=== PATIENT | female | born 1950 | race Caucasian/White ===

== ENCOUNTER 2018-06-14 15:08 | Emergency (ER) | payer MEDICARE ==
--- NOTE | 2018-06-14 16:21 | RADIOLOGY REPORT (SQ) ---
EXAM DESCRIPTION: CHEST SINGLE VIEW COMPLETED DATE/TIME: 06/14/2018 4:11 pm REASON FOR STUDY: cp COMPARISON: 03/07/2013 EXAM PARAMETERS: NUMBER OF VIEWS: One view. TECHNIQUE: Single frontal radiographic view of the chest acquired. RADIATION DOSE: NA LIMITATIONS: None. FINDINGS: LUNGS AND PLEURA: No opacities, masses or pneumothorax. No pleural effusion. MEDIASTINUM AND HILAR STRUCTURES: No masses. Contour normal. HEART AND VASCULAR STRUCTURES: Heart normal in size. Normal vasculature. BONES: Tendon anchor within the left humeral head. HARDWARE: Surgical clips project over the superior mediastinum. OTHER: No other significant finding. IMPRESSION: NO ACUTE RADIOGRAPHIC FINDING IN THE CHEST. TECHNICAL DOCUMENTATION: JOB ID: [id number] [employer]- All Rights Reserved Reading location - IP/workstation name: [email or web address]
[2018-06-14] MEDS ORDERED: IPRATROPIUM/ALBUTEROL 0.5-2.5 MG/3 ML AMPUL NEB ONE (16:24)
[2018-06-14 16:26] LABS: ABSOLUTE BASOPHILS # (AUTO) 0.1 10^3/uL (0.0-0.2); ABSOLUTE EOSINOPHILS # (AUTO) 0.1 10^3/uL (0.0-0.6); ABSOLUTE LYMPHOCYTES (AUTO) 2.1 10^3/uL (0.5-4.7); ABSOLUTE MONOCYTES (AUTO) 0.8 10^3/uL (0.1-1.4); ABSOLUTE NEUT (AUTO) 8.4 10^3/uL (1.7-8.2); EOSINOPHILS % (AUTO) 1.3 % (0-6); HEMATOCRIT 38.9 % (36.0-47.0); HEMOGLOBIN 12.5 g/dL (12.0-15.5); LYMPHOCYTES % (AUTO) 18.1 % (13-45); MEAN CORPUSCULAR HEMOGLOBIN 25.9 pg (27.0-33.4); MEAN CORPUSCULAR HGB CONC 32.3 g/dL (32.0-36.0); MEAN CORPUSCULAR VOLUME 80 fl (80-97); MONOCYTES % (AUTO) 7.3 % (3-13); PLATELET COUNT 394 10^3/uL (150-450); RED BLOOD COUNT 4.84 10^6/uL (3.72-5.28); RED CELL DISTRIBUTION WIDTH 14.6 % (11.5-14.0); SEGMENTED NEUTROPHILS % (AUTO) 72.3 % (42-78); TOTAL CELLS COUNTED % (AUTO) 100 %; WHITE BLOOD COUNT 11.6 10^3/uL (4.0-10.5)
--- NOTE | 2018-06-14 16:29 | ER Document Report ---
ED General <SWAPNA HUNT - Last Filed: 06/14/18 18:56> - General Mode of Arrival: Ambulatory Information source: Patient <OLGA MG - Last Filed: 06/17/18 06:26> - General Chief Complaint: Blood Pressure Problem Stated Complaint: BLOOD PRESSURE ISSUE Time Seen by Provider: 06/14/18 16:19 Notes: This 67-year-old female patient comes in with severe shortness of breath, dyspnea on exertion, and blood pressure elevating today. She does take propranolol 160 mg a day for her blood pressure. She is on albuterol tablets prn for her wheezing. She is currently on indomethacin for gout in her ankles, and reasons reports that the swelling and pain in the ankles is almost gone since being on indomethacin for the past few days. She reports she has been having these episodes of shortness of breath for which she takes albuterol tablets off and on for the past several days, but today is considerably worse than the previous episodes. She is initially quite dyspneic, retracting, with very tight wheezes. (MARILEEISA SofiaSWAPNA) 67-year-old female presenting today with complaints of shortness of breath. Patient also mentions having high blood pressure that she thinks is related to her having shortness of breath because her pressures did not rise until her shortness of breath began. Patient states that her chest feels tight but she denies any pain. Patient states that her chest tightness also began after her shortness of breath started. (OLGA MG) - Related Data Allergies/Adverse Reactions: No Known Allergies Allergy (Verified 03/07/13 16:29) Past Medical History - General Information source: Patient - Social History Smoking Status: Former Smoker Cigarette use (# per day): No Frequency of alcohol use: None Drug Abuse: None Lives with: Family Family History: Reviewed & Not Pertinent - Past Medical History Cardiac Medical History: Reports: Hx Hypercholesterolemia, Hx Hypertension Endocrine Medical History: Reports: Hx Diabetes Mellitus Type 2 GI Medical History: Reports: Hx Hiatal Hernia Past Surgical History: Reports: Hx Thyroid Surgery <OLGA MG - Last Filed: 06/17/18 06:26> Review of Systems - Review of Systems Constitutional: No symptoms reported EENT: No symptoms reported Cardiovascular: No symptoms reported Respiratory: See HPI, Short of breath, Wheezing Gastrointestinal: No symptoms reported Genitourinary: No symptoms reported Female Genitourinary: No symptoms reported Musculoskeletal: No symptoms reported Skin: No symptoms reported Hematologic/Lymphatic: No symptoms reported Neurological/Psychological: No symptoms reported -: Yes All other systems reviewed and negative <OLGA MG - Last Filed: 06/17/18 06:26> Physical Exam <SWAPNA HUNT - Last Filed: 06/14/18 18:56> <OLGA MG - Last Filed: 06/17/18 06:26> - Vital signs Vitals: Resp BP Pulse Ox 29 H 166/136 H 96 06/14/18 15:13 06/14/18 15:13 06/14/18 15:13 - Notes Notes: Physical Exam: General: Alert, appears anxious. HEENT: Normocephalic. Atraumatic. PERRL. Extraocular movements intact. Oropharynx clear. Neck: Supple. Non-tender. Respiratory: Moderate respiratory distress. Retracting, high-pitched wheezing throughout, very little air movement. Cardiovascular: Regular rate and rhythm. Abdominal: Normal Inspection. Non-tender. No distension. Normal Bowel Sounds. Back: Non-tender. No deformity or step off. Extremities: Moves all four extremities. Upper extremities: Normal inspection. Normal ROM. Lower extremities: Normal inspection. No edema. Normal ROM. Neurological: Normal cognition. AAOx4. Normal speech. Psychological: Normal affect. Normal Mood. Skin: Warm. Dry. Normal color. (OLGA MG) Course - Laboratory Result Diagrams: 06/14/18 15:12 06/14/18 15:12 - Diagnostic Test Radiology reviewed: Reports reviewed - Chest x-ray does not show infiltrate - EKG Interpretation by Nv EKG shows normal: Sinus rhythm, [place], Intervals, QRS Complexes, ST-T Waves Rate: Normal - 71 Rhythm: NSR [place]/QRS: IVCD <SWAPNA HUNT - Last Filed: 06/14/18 18:56> - Laboratory Result Diagrams: 06/14/18 15:12 06/14/18 15:12 <OLGA MG - Last Filed: 06/17/18 06:26> - Re-evaluation Re-evalutation: 06/14/18 18:31 The patient is feeling much better after breathing treatments, wheezes are gone. Blood pressure has come down. She will be instructed to stop taking albuterol tablets and use the inhaler. She will be discharged on prednisone taper dose. She will be instructed to stop taking the indomethacin she is taking for gout in her ankles as the prednisone will be more than adequate for this. She will be encouraged follow-up with her primary care provider to discuss possibility of inhaled steroids or inhaled steroids and long-acting bronchodilators. (SWAPNA HUNT) - Vital Signs Vital signs: Temp Pulse Resp BP Pulse Ox 98 F 17 154/98 H 96 06/14/18 19:06 06/14/18 18:55 06/14/18 18:55 06/14/18 18:55 - Laboratory Laboratory results interpreted by me: 06/14/18 06/14/18 15:12 15:12 WBC 11.6 H MCH 25.9 L RDW 14.6 H Absolute Neutrophils 8.4 H Est GFR ( Amer) 52 L Est GFR (Non-Af Amer) 43 L Glucose 177 H Alkaline Phosphatase 133 H Discharge <SWAPNA HUNT - Last Filed: 06/14/18 18:56> <OLGA MG - Last Filed: 06/17/18 06:26> - Discharge Clinical Impression: Asthma attack Qualifiers: Asthma severity: severe Asthma persistence: unspecified Qualified Code(s): J45.901 - Unspecified asthma with (acute) exacerbation Condition: Stable Disposition: HOME, SELF-CARE Additional Instructions: Start the prednisone prescription tomorrow. Use the albuterol inhaler that was dispensed with you for wheezing. Take 2 puffs from the inhaler every 2-4 hours as needed for wheezing. Drink plenty of fluids and rest. Follow-up with your doctor this week to discuss using a long acting inhaled bronchodilator, an inhaled steroid, and albuterol inhaler as a rescue medication. RETURN TO THE EMERGENCY ROOM IF ANY NEW OR WORSENING SYMPTOMS. Prescriptions: Albuterol Sulfate [Proair HFA] 1 - 2 puff IH Q4 PRN #1 inhaler PRN Reason: Prednisone [Deltasone 10 mg Tablet] 10 mg PO ASDIR PRN #21 tablet PRN Reason: Scribe Attestation: 06/14/18 18:57 I personally performed the services described in the documentation, reviewed and edited the documentation which was dictated to the scribe in my presence, and it accurately records my words and actions. (SWAPNA HUNT) Scribe Documentation - Scribe Written by Adi:: Adi Tena, 06/14/2018 1748 acting as scribe for :: Marilee <OLGA MG - Last Filed: 06/17/18 06:26>
[2018-06-14 16:48] LABS: ALANINE AMINOTRANSFERASE 17 U/L (9-52); ALBUMIN 3.7 g/dL (3.5-5.0); ALKALINE PHOSPHATASE 133 U/L (38-126); ANION GAP 12 (5-19); ASPARTATE AMINO TRANSFERASE 30 U/L (14-36); BILIRUBIN,DIRECT 0.3 mg/dL (0.0-0.4); BILIRUBIN,TOTAL 0.3 mg/dL (0.2-1.3); BLOOD UREA NITROGEN 18 mg/dL (7-20); CALCIUM 8.6 mg/dL (8.4-10.2); CARBON DIOXIDE 28 mmol/L (22-30); CHLORIDE 101 mmol/L (98-107); CREATINE KINASE 72 U/L (30-135); GLUCOSE 177 mg/dL (75-110); POTASSIUM 4.8 mmol/L (3.6-5.0); SODIUM 140.6 mmol/L (137-145); TOTAL PROTEIN 7.4 g/dL (6.3-8.2)
[2018-06-14 16:56] LABS: CREATINE KINASE MB 0.71 ng/mL (<4.55)
[2018-06-14 17:00] LABS: TROPONIN I 0.013 ng/mL
[2018-06-14] MEDS ORDERED: ALBUTEROL SULFATE 0.083% NEB 2.5 MG/3 ML AMPUL NEB ONE (17:17)
[2018-06-14] MEDS ORDERED: MAGNESIUM SULFATE/D5W 1 GM/100 ML RTUPB IV ONE (17:17)
[2018-06-14] MEDS ORDERED: METHYLPREDNISOLONE INJ 125 MG/2 ML SDV IV ONE (17:30)
[2018-06-14] MEDS ORDERED: ALBUTEROL SULFATE HFA (90 MCG/PUFF) 8 GM MDI (1 MDI/ER DISP) IH ONE (18:28)
[2018-06-14] MEDS ORDERED: PREDNISONE 20 MG TABLET PO ONE (18:28)
[2018-06-14 19:07] VITALS: BP 154/98
--- NOTE | 2018-06-14 21:46 | EKG REPORT ---
SEVERITY:- ABNORMAL ECG - SINUS RHYTHM ABERRANT COMPLEX, POSSIBLY SUPRAVENTRICULAR NONSPECIFIC INTRAVENTRICULAR CONDUCTION DELAY : Confirmed by: Chantel Mays MD 14-Jun-2018 21:45:51
== END 2018-06-14 19:07 | disposition home or self-care (01) ==
LOC: ER 15:08
DX: J45.901 Unspecified asthma with (acute) exacerbation (principal); R06.02 Shortness of breath; I10 Essential (primary) hypertension; E11.9 Type 2 diabetes mellitus without complications; M10.9 Gout, unspecified; R07.89 Other chest pain; Z79.899 Other long term (current) drug therapy; Z87.891 Personal history of nicotine dependence
CPT/HCPCS: 93005; 94640 ×2; 99284; 96375; 96365; 36415; 82553; 82550; 85025; 80053; 84484; 83880; 71045; 93010; J2930; J3475; A9270 ×3; J3490; J7512; J7620

== ENCOUNTER 2019-02-13 01:38 | Emergency (ER) | payer MEDICARE ==
[2019-02-13 01:46] VITALS: BP 157/101
[2019-02-13 03:10] LABS: APPEARANCE,URINE SLIGHTLY-CLOUDY; BILIRUBIN,URINE NEGATIVE (NEGATIVE); COLOR,URINE YELLOW; GLUCOSE, URINE NEGATIVE (NEGATIVE); KETONES,URINE NEGATIVE (NEGATIVE); LEUKOCYTE ESTERASE,URINE NEGATIVE (NEGATIVE); NITRITE,URINE NEGATIVE (NEGATIVE); PROTEIN,URINE NEGATIVE (NEGATIVE); URINE SPECIFIC GRAVITY 1.023
== END 2019-02-13 03:20 | disposition left against medical advice (07) ==
LOC: ER 01:38
DX: Z53.21 Procedure and treatment not carried out due to patient leaving prior to being seen by health care provider (principal); R10.9 Unspecified abdominal pain
CPT/HCPCS: 81001

== ENCOUNTER 2019-11-19 11:14 | Emergency (ER) | payer MEDICARE ==
--- NOTE | 2019-11-19 11:27 | ER Document Report ---
ED Medical Screen (RME) - General Stated Complaint: POSSIBLE SYMPTOMS OF STROKE Time Seen by Provider: 11/19/19 11:20 Mode of Arrival: Ambulatory Information source: Patient Notes: 69-year-old female patient presenting to the ED with strokelike symptoms. Patient reports symptoms ongoing for the last month. She states she had an outpatient MRI done yesterday. She states they called her this morning and told her to either come to the emergency department or her primary care doctor for follow-up. She states her primary care doctor is closed so she came here. She denies any new symptoms in the last several days. Exam: No facial droop or asymmetry noted. Flarer strength is equal bilaterally. Slightly decreased sensation to the left upper extremity. I have greeted and performed a rapid initial assessment of this patient. A comprehensive ED assessment and evaluation of the patient, analysis of test results and completion of the medical decision making process will be conducted by additional ED providers. I have specifically instructed the patient or family members with the patient to immediately return to any nursing staff should anything change in the patient's condition or with their chief complaint. This medical record was dictated with voice recognizing software. There may be grammatical, syntax errors that are unintended. TRAVEL OUTSIDE OF THE [place] IN LAST 30 DAYS: No - Related Data Allergies/Adverse Reactions: No Known Allergies Allergy (Verified 02/13/19 01:40) Past Medical History - Past Medical History Cardiac Medical History: Reports: Hx Hypercholesterolemia, Hx Hypertension Pulmonary Medical History: Reports: Hx Asthma Endocrine Medical History: Reports: Hx Diabetes Mellitus Type 2 Renal/ Medical History: Denies: Hx Peritoneal Dialysis GI Medical History: Reports: Hx Hiatal Hernia Past Surgical History: Reports: Hx Thyroid Surgery
--- NOTE | 2019-11-19 11:28 | ER Document Report ---
Doctor's Note Notes: 11/19/19 11:27 Spoke with attending physicians, Dr. Villanueva and Dr. Wade and I will not order any additional imaging at this time. She will be evaluated in the back by main side provider.
[2019-11-19 12:26] LABS: ABSOLUTE BASOPHILS # (AUTO) 0.1 10^3/uL (0.0-0.2); ABSOLUTE EOSINOPHILS # (AUTO) 0.1 10^3/uL (0.0-0.6); ABSOLUTE LYMPHOCYTES (AUTO) 1.4 10^3/uL (0.5-4.7); ABSOLUTE MONOCYTES (AUTO) 0.8 10^3/uL (0.1-1.4); BASOPHILS % (AUTO) 1.4 % (0-2); EOSINOPHILS % (AUTO) 1.1 % (0-6); HEMATOCRIT 38.6 % (36.0-47.0); HEMOGLOBIN 12.5 g/dL (12.0-15.5); LYMPHOCYTES % (AUTO) 16.4 % (13-45); MEAN CORPUSCULAR HEMOGLOBIN 25.3 pg (27.0-33.4); MEAN CORPUSCULAR HGB CONC 32.3 g/dL (32.0-36.0); MEAN CORPUSCULAR VOLUME 78 fl (80-97); MONOCYTES % (AUTO) 9.4 % (3-13); PLATELET COUNT 326 10^3/uL (150-450); RED BLOOD COUNT 4.93 10^6/uL (3.72-5.28); RED CELL DISTRIBUTION WIDTH 15.1 % (11.5-14.0); SEGMENTED NEUTROPHILS % (AUTO) 71.7 % (42-78); TOTAL CELLS COUNTED % (AUTO) 100 %; WHITE BLOOD COUNT 8.4 10^3/uL (4.0-10.5)
[2019-11-19 12:31] LABS: INTERNATIONAL RATION (INR) 1.06
[2019-11-19 12:32] LABS: PARTIAL THROMBOPLASTIN TIME 28.8 SEC (23.5-35.8)
[2019-11-19 12:40] LABS: PROTHROMBIN TIME 13.9 SEC (11.4-15.4)
[2019-11-19 12:46] LABS: ALBUMIN 3.8 g/dL (3.5-5.0); ALKALINE PHOSPHATASE 112 U/L (38-126); ANION GAP 10 (5-19); ASPARTATE AMINO TRANSFERASE 22 U/L (14-36); BILIRUBIN,DIRECT 0.2 mg/dL (0.0-0.4); BILIRUBIN,TOTAL 0.6 mg/dL (0.2-1.3); BLOOD UREA NITROGEN 15 mg/dL (7-20); CARBON DIOXIDE 28 mmol/L (22-30); CHLORIDE 104 mmol/L (98-107); CREATINE KINASE 53 U/L (30-135); GLUCOSE 122 mg/dL (75-110); POTASSIUM 4.7 mmol/L (3.6-5.0); TOTAL PROTEIN 7.3 g/dL (6.3-8.2)
--- NOTE | 2019-11-19 12:51 | ER Document Report ---
ED General - General Chief Complaint: S/S of Possible Stroke Stated Complaint: POSSIBLE SYMPTOMS OF STROKE Time Seen by Provider: 11/19/19 11:20 Primary Care Provider: DONTE BROWN MD [NO LOCAL MD] - Follow up in 1 week Mode of Arrival: Ambulatory TRAVEL OUTSIDE OF THE [place] IN LAST 30 DAYS: No - HPI Notes: 69 year old female with history of HLD, HTN, DM to the ED with C/O stroke like symptoms that began about one month ago. She states that she has been having left sided weakness to her arm and leg with occasional left sided "facial pulling" and slurred speech. States three weeks ago, she was admitted overnight to [facility] for the same symptoms. She was told that her MRI without contrast was normal, but her lipitor was increased from 10 mg to 80 mg. States that her symptoms have continued. States that the last time she has facial d duc and speech difficulties was last week. She saw her neck specialist, Dr. Chen and he sent her for a MRI of brain and neck with IV contrast. She got a call today to either present to her PCP or come to the ER. She has a disc with her but does not know the result. Denies worsening symptoms today -- she did take a baby aspirin this morning. - Related Data Allergies/Adverse Reactions: escitalopram [From Lexapro] Allergy (Verified 11/19/19 12:12) fluticasone furoate [From Breo Ellipta] Allergy (Verified 11/19/19 12:12) vilanterol [From Breo Ellipta] Allergy (Verified 11/19/19 12:12) Home Medications: Lipitor Past Medical History - General Information source: Patient, Relative - Social History Smoking Status: Former Smoker Frequency of alcohol use: None Drug Abuse: None Lives with: Family Family History: Reviewed & Not Pertinent Patient has suicidal ideation: No Patient has homicidal ideation: No - Past Medical History Cardiac Medical History: Reports: Hx Hypercholesterolemia, Hx Hypertension Pulmonary Medical History: Reports: Hx Asthma Endocrine Medical History: Reports: Hx Diabetes Mellitus Type 2 Renal/ Medical History: Denies: Hx Peritoneal Dialysis GI Medical History: Reports: Hx Hiatal Hernia Past Surgical History: Reports: Hx Thyroid Surgery Review of Systems - Review of Systems Constitutional: denies: Chills, Fever EENT: No symptoms reported. denies: Blurred vision, Double vision Cardiovascular: denies: Palpitations, Orthopnea, Dyspnea, Syncope, Dizziness, Lightheaded Respiratory: denies: Cough, Short of breath Gastrointestinal: denies: Abdominal pain, Diarrhea, Nausea, Vomiting Musculoskeletal: No symptoms reported Skin: No symptoms reported Hematologic/Lymphatic: No symptoms reported Neurological/Psychological: Weakness - left sided weakness, Loss of power - weakness in the left leg and left arm, Other - intermittent facial numbness and slurred speech Physical Exam - Vital signs Vitals: Pulse Resp BP Pulse Ox 73 16 216/82 H 99 11/19/19 11:34 11/19/19 11:34 11/19/19 11:34 11/19/19 11:34 Interpretation: Hypertensive Notes: Selected Entries 11/19/19 11/19/19 12:29 12:32 Heart Rate ( 68 57 Monitors) Respiratory 18 19 Rate Blood Pressure 154/73 H 133/70 H Blood Pressure 100 91 Mean O2 Sat by Pulse 99 100 Oximetry - General General appearance: Appears well, Alert In distress: None - HEENT Head: Normocephalic, Atraumatic Eyes: Normal Pupils: PERRL - Respiratory Respiratory status: No respiratory distress Chest status: Nontender Breath sounds: Normal. No: Rales, Rhonchi, Stridor, Wheezing Chest palpation: Normal - Cardiovascular Rhythm: Regular Heart sounds: Normal auscultation Murmur: No - Abdominal Inspection: Normal Distension: No distension Bowel sounds: Normal Tenderness: Nontender. No: Tender, McBurney's point, Magallanes's sign, Guarding, Rebound Organomegaly: No organomegaly - Neurological Neuro grossly intact: Yes Cognition: Normal Orientation: AAOx4 Cristal Coma Scale Eye Opening: Spontaneous Cristal Coma Scale Verbal: Oriented Mcdonough Coma Scale Motor: Obeys Commands Mcdonough Coma Scale Total: 15 Speech: Normal Cranial nerves: No: Facial palsy, Forehead sparing, Gaze palsy, Sensory deficit Cerebellar coordination: Other - patient has difficulty with left heel to polanco. she has some weakness in the left leg but no leg drift. Motor strength normal: LUE, RUE, LLE, RLE Additional motor exam normals: Equal window glazier. No: Pronator drift - no pronator drift, normal finger to nose bilaterally Sensory: Normal - Psychological Associated symptoms: Normal affect, Normal mood - Skin Skin Temperature: Warm Skin Moisture: Dry Skin Color: Normal Course - Re-evaluation Re-evalutation: MRI reading was finally faxed over from [facility] radiology. It shows subacute right sided MCA territory infarct. Suggestion for a repeat MRI with IV contrast in 4 to 8 weeks. Discussed this finding with Dr. Medel, ER attending. We discussed how she was admitted to [facility] about 3 weeks ago. We discussed how she was optimized on her Lipitor up to 80 mg. We discussed how she has been taking 81 mg of aspirin. We discussed how her symptoms have not been progressing since she was seen at [facility]. We agree that patient has been optimized from a possible inpatient point of view. We do think that she needs outpatient follow-up and likely OT and PT. We will plan on discharging home. Encouraged to continue 81 mg of aspirin as well as her Lipitor. Discussed with patient MRI reading and plan for this reading. Discussed how we would like for her to have OT and PT through her primary care physician. Her primary care physician is Dr. Brown in [place]. Apparently he is out of town. I have attempted to page him multiple times without success. Will invol ve our case management to help get her followed up with primary care for outpatient OT and PT. - Vital Signs Vital signs: Temp Pulse Resp BP Pulse Ox 98.3 F 73 20 126/63 H 97 11/19/19 16:31 11/19/19 11:34 11/19/19 16:31 11/19/19 16:31 11/19/19 16:31 - Laboratory Result Diagrams: 11/19/19 12:06 11/19/19 12:06 Laboratory results interpreted by me: 11/19/19 11/19/19 12:06 12:06 MCV 78 L MCH 25.3 L RDW 15.1 H Est GFR ( Amer) 53 L Est GFR (MDRD) Non-Af 44 L Glucose 122 H Discharge - Discharge Clinical Impression: Numbness and tingling in left hand, Left leg weakness, History of cerebral infarction Condition: Stable Disposition: HOME, SELF-CARE Instructions: Numbness or Paresthesia ([facility]), Stroke ([facility]) Additional Instructions: FOLLOW UP WITH YOUR PRIMARY CARE PHYSICIAN AND NEUROLOGIST WITHOUT FAIL. CONTINUE YOUR DAILY ASPIRIN Of 81 MG. CONTINUE YOUR MAXIMIZED DOSE OF LIPITOR of 80 MG DAILY. RETURN IMMEDIATELY IF YOUR SYMPTOMS WORSEN. Referrals: DONTE BROWN MD [NO LOCAL MD] - Follow up in 1 week
[2019-11-19 12:58] LABS: CREATINE KINASE MB 0.66 ng/mL (<4.55)
[2019-11-19 13:00] LABS: TROPONIN I < 0.012 ng/mL
[2019-11-19 16:42] VITALS: BP 126/63
--- NOTE | 2019-11-20 15:58 | EKG REPORT ---
SEVERITY:- NORMAL ECG - SINUS RHYTHM : Confirmed by: Jhonny Bahena 20-Nov-2019 15:58:13
== END 2019-11-19 16:48 | disposition home or self-care (01) ==
LOC: ER 11:14
DX: R53.1 Weakness (principal); R47.81 Slurred speech; R20.0 Anesthesia of skin; R20.2 Paresthesia of skin; I10 Essential (primary) hypertension; E11.9 Type 2 diabetes mellitus without complications; E78.00 Pure hypercholesterolemia, unspecified; J45.909 Unspecified asthma, uncomplicated; Z86.73 Personal history of transient ischemic attack (TIA), and cerebral infarction without residual deficits; Z87.891 Personal history of nicotine dependence; Z79.899 Other long term (current) drug therapy; Z88.8 Allergy status to other drugs, medicaments and biological substances
CPT/HCPCS: 36415; 80053; 82550; 82553; 84484; 85025; 85610; 85730; 93005; 93010; 99285

== ENCOUNTER → 2020-12-24 | Outpatient (CLI) | payer MEDICARE ==
[~2020-12-24] MED LIST: COVID-19 VACCINE (PFIZER)/PF 30 MCG/0.3 ML VIAL IM ONE; EPINEPHRINE INJ/PF 1 MG/1 ML AMPULE IM PRN
== END ==
LOC: EMPHEALTH 13:13
PROVIDERS: ATTEND Internal Medicine
DX: Z23 Encounter for immunization (principal)
CPT/HCPCS: 91300